=== PATIENT | female | born 1960 | race Caucasian/White ===

== ENCOUNTER 2017-09-15 20:35 | Emergency (ER) | payer MEDICAID, MEDICARE, OTHER ==
[~2017-09-15] VITALS: Ht 182.9 cm; Wt 83.9 kg
[~2017-09-15 20:35] MED LIST: BACITRACIN15 GM TOPIC; BACTRIM DS TAB1 EAC1 ORAL; BACTRIM-DS1 EA ORAL; BUPROPION HCL100 MG ORAL; CEPHALEXIN500 MG ORAL; CLINDAMYCIN HC300 MG ORAL; HYDROCODON-ACE1 EAC4 ORAL; IBUPROFEN600 MG ORAL; KEFLEX500 MG ORAL; KLONOPIN1 MG ORAL; LEVOFLOXAC250 MG/10 PO; LIDOCAINE VISC100 ML MT; LOMOTIL TABLET1 EACH ORAL; METAXALONE800 MG PO; NORCO 5-325 TA1 EACH ORAL; PANTOPRAZOLE SO40 MG ORAL; PERPHENAZINE2 MG PO; PROCHLORPERAZINE5 MG ORAL; PROPRANOLOL HCL10 MG ORAL; REGLAN10 MG ORAL; RISPERDAL0.5 MG ORAL; SERTRALINE HCL100 MG PO; TRAMADOL HCL50 MG ORAL; VISTARIL50 MG ORAL; XANAX0.25 MG ORAL
[2017-09-15] MEDS ORDERED: BUSPIRONE HCL5 M1 ORAL (20:47)
[2017-09-15 20:59] VITALS: BP 126/80
--- NOTE | 2017-09-15 21:12 | Emergency Room Report ---
History of Present Illness General Chief Complaint: Multiple Trauma/Fall Source: Patient Present Illness HPI 57-year-old female accidental slip and fall outside of her house, with abrasion to lateral aspect of the left eyebrow, abrasion to inner left wrist, abrasion to middle part of left back and left proximal leg. Not in AC or aspirin. Denies LOC, vomiting, blurry vision, change in vision Unknown last tetanus Able to ambulate Allergies: Coded Allergies: No Known Allergies (Unverified , 06/27/13) Patient History Past Medical History: none Past Surgical History: none Pertinent Family History: none Social History: Denies: smoking, alcohol use, drug use Last Menstrual Period: n/a Now: No Immunizations: UTD Reviewed Nursing Documentation: PMH: Agreed, PSxH: Agreed Nursing Documentation-PMH Hx Cardiac Problems: No Hx Hypertension: No Hx Pacemaker: No Hx Asthma: No Hx COPD: No Hx Diabetes: No Hx Cancer: No Hx Gastrointestinal Problems: Yes - Fundus duplication x 2 Hx Dialysis: No History Of Psychiatric Problem: Yes Hx Neurological Problems: Yes - medically induced coma in , neuropathy , vertigo Hx Cerebrovascular Accident: No Hx Seizures: Yes Review of Systems All Other Systems: negative except mentioned in HPI Physical Exam Vital Signs Date Time Temp Pulse Resp B/P (MAP) Pulse Ox O2 Delivery O2 Flow Rate FiO2 09/15/17 20:38 98.1 104 16 126/80 96 Room Air Sp02 EP Interpretation: reviewed, normal General Appearance: normal inspection, well appearing, no apparent distress, alert, GCS 15, non-toxic, other - Well appearing, conversant Head: normocephalic, other - Abrasion to lateral aspect left eyebrow Eyes: bilateral eye PERRL, bilateral eye EOMI ENT: normal ENT inspection, hearing grossly normal, normal pharynx, no angioedema, normal voice, TMs + canals normal, uvula midline, moist mucus membranes Neck: normal inspection, full range of motion, supple, thyroid normal, no meningismus, no bony tend Respiratory: normal inspection, lungs clear, normal breath sounds, no rhonchi, no respiratory distress, no retraction, no accessory muscle use, no wheezing, speaking full sentences Cardiovascular #1: regular rate, rhythm, no edema, no JVD, normal capillary refill Gastrointestinal: normal inspection, normal bowel sounds, non tender, soft, no mass, no peritonitis, non-distended, no guarding, no hernia, no pulsatile mass Genitourinary: no CVA tenderness Musculoskeletal: normal inspection, back normal, normal range of motion, no calf tenderness, pelvis stable, Soahil's Sign negative Neurologic: normal inspection, alert, oriented x3, responsive, 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, motor strength/tone normal, cerebellar normal, normal gait, speech normal Psychiatric: normal inspection, judgement/insight normal, mood/affect normal, no suicidal/homicidal ideation, no delusions Skin: other - Multiple very small abrasions to right foot, left elbow, abrasions Lymphatic: normal inspection, no adenopathy Medical Decision Making Diagnostic Impression: Primary Impression: Multiple injuries due to trauma Additional Impression: Fall Qualified Codes: W19.XXXA - Unspecified fall, initial encounter ER Course 57YOF with multiple abrasions, from minor trauma after accidental trip and fall at home VSS, afebrile Mild head trauma, no LOC Wounds cleaned, bandaged Analgesia given Tetanus updated All xrays reviewed by ER doctor only - radiology unavailable for definitive read at night Patient reassured ER course: Patient has remained stable during ED stay. Disposition: Patient is to be discharged to home. Patient is instructed to follow up with their primary care doctor within 5 days. Strict return precautions discussed with patient such as fever, chills, worsening/severe pain, nausea, vomiting, which may indicate severe illness. Patient verbalizes understanding and agrees with plan. Please note that this Emergency Department Report was dictated using [email or web address] bariatric technology software, occasionally this can lead to erroneous entry secondary to interpretation by the dictation equipment Other X-Ray Diagnostic Results Other X-Ray Diagnostic Results #1: X-Ray ordered: Chest and ribs # of Views/Limited Vs Complete: Complete Indication: Pain EP Interpretation: Yes Interpretation: no dislocation, no soft tissue swelling, no fractures, nonspecific bowel gas Impression: No acute disease Electronically Signed by: Dr Virgil Hilton MD Other X-Ray Diagnostic Results #2: X-Ray ordered: left femur # of Views/Limited Vs Complete: 3 View Indication: Pain EP Interpretation: Yes Interpretation: no dislocation, no soft tissue swelling, no fractures Impression: No acute disease Electronically Signed by: Dr Virgil Hilton MD Other X-Ray Diagnostic Results #3: X-Ray ordered: AP pelvis # of Views/Limited Vs Complete: 1 View Indication: Pain EP Interpretation: Yes Interpretation: no dislocation, no soft tissue swelling, no fractures Impression: No acute disease Electronically Signed by: Dr Virgil Hilton MD Last Vital Signs Date Time Temp Pulse Resp B/P (MAP) Pulse Ox O2 Delivery O2 Flow Rate FiO2 09/15/17 20:59 98.1 104 16 126/80 96 Room Air Status: improved Disposition: HOME, SELF-CARE VIRGIL HILTON M.D. Sep 15, 2017 21:12
[2017-09-15 22:00] VITALS: BP 124/83
[2017-09-15] MEDS ORDERED: TYLENOL325 MG ORAL (22:06)
[2017-09-15] MEDS ORDERED: BACITRACIN-POL1 EACH TOPIC (22:06)
[2017-09-15 22:17] VITALS: BP 124/83
--- NOTE | 2017-09-16 09:52 | Diagnostic Imaging Report ---
Indication: Pain Technique: XRAY Ribs w/PA CXR Uni L Comparison: None Findings: There is a acute fracture of the lateral left 10th rib. No significantly displacement. No pneumothorax. Imaged left lung clear. Impression: Acute, nondisplaced fracture of the lateral left 10th rib. No pneumothorax. This is discrepant from the preliminary interpretation of the treating ER physician. Findings of the final report discussed with Dr. Carcamo of the emergency department 09/16/2017, 9:45 AM.
--- NOTE | 2017-09-16 09:54 | Diagnostic Imaging Report ---
Indication: Pain Technique: XRAY Femur 2v L Comparison: None Findings: There is no acute fracture or dislocation. Imaged hip and knee joints grossly preserved. No focal soft tissue abnormality is seen. No radiopaque foreign body identified. Impression: No acute fracture or dislocation.
--- NOTE | 2017-09-16 09:56 | Diagnostic Imaging Report ---
Indication: Pain Technique: XRAY Pelvis 1v Comparison: None Findings: No acute fracture or dislocation. Symphysis pubis is maintained. Bowel gas pattern is unremarkable. No radiopaque foreign body identified. Impression: No acute fracture or dislocation.
== END 2017-09-15 22:17 | disposition home or self-care (01) ==
LOC: EMR 22:15
DX: S50.312A Abrasion of left elbow, initial encounter (principal); S00.212A Abrasion of left eyelid and periocular area, initial encounter; S22.32XA Fracture of one rib, left side, initial encounter for closed fracture; W01.0XXA Fall on same level from slipping, tripping and stumbling without subsequent striking against object, initial encounter; Y92.008 Other place in unspecified non-institutional (private) residence as the place of occurrence of the external cause
CPT/HCPCS: 72170; 99284

== ENCOUNTER 2018-09-18 19:54 | Emergency (ER) | payer MEDICARE, OTHER ==
[~2018-09-18] VITALS: Ht 182.9 cm; Wt 86.2 kg
[~2018-09-18 19:54] MED LIST changes: +BACITRACIN-POL1 EACH TOPIC; +BUSPIRONE HCL5 M1 ORAL; +TYLENOL325 MG ORAL
[2018-09-18 20:05] VITALS: BP 109/72
--- NOTE | 2018-09-18 20:05 | NUR ---
ED Nurse Note: pt came in due to medication refill for neuropathy, pt complaining or 5./10 pain on right rib
[2018-09-18] MEDS ORDERED: VOLTAREN100 G1 TP (20:23)
[2018-09-18 20:26] VITALS: BP 109/72
--- NOTE | 2018-09-18 20:26 | NUR ---
ED Nurse Note: Patient is being discharged cleared by ER PA. discharge paper/instruction given to the patient, patient verbalized understanding. patient a/o x4, ambulated out of Ed with steady gait, with all belongings. ID band removed.
--- NOTE | 2018-09-18 21:02 | Emergency Room Report ---
History of Present Illness General Chief Complaint: Medication Refill Source: Patient Present Illness HPI Patient is a 58-year-old female presented after running out of her pain medications. Patient reports having prior hist ory of neuropathy. Patient is requesting a refill of her [place]. Patient was noted to have Patient denies any new complaints. Per report patient reports being a smoker. She denies any increased discomfort at this time. Allergies: Coded Allergies: No Known Allergies (Unverified , 06/27/13) Patient History Now: No Reviewed Nursing Documentation: PMH: Agreed; PSxH: Agreed Nursing Documentation-PMH Hx Cardiac Problems: No Hx Hypertension: No Hx Pacemaker: No Hx Asthma: No Hx COPD: No Hx Diabetes: No Hx Cancer: No Hx Gastrointestinal Problems: Yes - Fundus duplication x 2 Hx Dialysis: No Hx Neurological Problems: Yes - medically induced coma in , neuropathy , vertigo Hx Cerebrovascular Accident: No Hx Seizures: Yes Review of Systems All Other Systems: negative except mentioned in HPI Physical Exam Vital Signs Date Time Temp Pulse Resp B/P (MAP) Pulse Ox O2 Delivery O2 Flow Rate FiO2 09/18/18 20:02 97.5 93 18 109/72 98 09/18/18 20:05 Room Air General Appearance: well appearing, no apparent distress, alert, GCS 15 Head: normocephalic, atraumatic ENT: hearing grossly normal, normal voice Neck: full range of motion, supple Respiratory: no respiratory distress, speaking full sentences Gastrointestinal: normal bowel sounds, non tender, soft, no mass, no organomegaly Musculoskeletal: no calf tenderness Neurologic: normal inspection, alert, oriented x3, responsive, 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 Patient was advised that she would need to follow-up with her primary care physician for medication refills. Patient was given a prescription for topical anti-inflammatory medications. Last Vital Signs Date Time Temp Pulse Resp B/P (MAP) Pulse Ox O2 Delivery O2 Flow Rate FiO2 09/18/18 20:26 97.5 68 18 109/72 98 Room Air Status: improved Disposition: HOME, SELF-CARE Condition: Stable Scripts Diclofenac Sodium (VOLTAREN) 100 Gm Gel..gram. 5 GM TP DAILY for pain, #100 GM Prov: Willi Mitchell MD 09/18/18 Patient Instructions: Chronic Pain Additional Instructions: Follow up with your primary doctor or pain management for pain medications Willi Mitchell MD Sep 18, 2018 21:02
== END 2018-09-18 20:35 | disposition home or self-care (01) ==
LOC: EMR 20:35
DX: G89.29 Other chronic pain (principal); F17.200 Nicotine dependence, unspecified, uncomplicated; R56.9 Unspecified convulsions
CPT/HCPCS: 99282

== ENCOUNTER 2019-03-08 22:45 | Emergency (ER) | payer OTHER ==
[~2019-03-08] VITALS: Ht 182.9 cm; Wt 86.2 kg
[~2019-03-08 22:45] MED LIST changes: +VOLTAREN100 G1 TP
[2019-03-08 23:10] VITALS: BP 130/85
--- NOTE | 2019-03-08 23:15 | NUR ---
ED Nurse Note: Patient walked in to ER c/o rash on right chest, stated that having difficulty to breath, appears calm, satting at 99% on room air. AAO x4, VSS at this time.
[2019-03-08] MEDS ORDERED: NORCO 5-325 TA1 EACH ORAL (23:55)
[2019-03-08] MEDS ORDERED: ACYCLOVIR800 MG ORAL (23:55)
[2019-03-09 00:44] VITALS: BP 130/85
--- NOTE | 2019-03-09 00:45 | NUR ---
ED Nurse Note: Pt cleared by health care Provider for discharge. DC instructions/prescription was given and explained to pt and verbalized understanding of teachings. All medical deviecs such as ID band removed. Pt is AAO x4, ambulatory and left with all personal belongings.
--- NOTE | 2019-03-10 22:05 | Emergency Room Report ---
History of Present Illness General Chief Complaint: Skin Rash/Abscess Source: Patient Present Illness Allergies: Coded Allergies: No Known Allergies (Unverified , 06/27/13) Patient History Last Menstrual Period: NA Now: No : 4 Para: 2 Nursing Documentation-PMH Hx Cardiac Problems: No Hx Hypertension: No Hx Pacemaker: No Hx Asthma: No Hx COPD: No Hx Diabetes: No Hx Cancer: No Hx Gastrointestinal Problems: Yes - stomach Sx Hx Dialysis: No History Of Psychiatric Problem: Yes - bipolar Hx Neurological Problems: Yes - neuropathy Hx Cerebrovascular Accident: No Hx Seizures: Yes Physical Exam Vital Signs Date Time Temp Pulse Resp B/P (MAP) Pulse Ox O2 Delivery O2 Flow Rate FiO2 03/08/19 22:51 97.5 97 16 130/85 (100) 99 Room Air Medical Decision Making Diagnostic Impression: Primary Impression: Shingles Last Vital Signs Date Time Temp Pulse Resp B/P (MAP) Pulse Ox O2 Delivery O2 Flow Rate FiO2 03/09/19 00:44 97.5 16 130/85 99 Room Air 03/08/19 22:51 97 Disposition: HOME, SELF-CARE Condition: Stable Scripts Acyclovir* (ZOVIRAX*) 800 Mg Tablet 800 MG ORAL FIVE TIMES A DAY, #35 TAB Prov: Willi Mitchell MD 03/08/19 Hydrocodone Bit/Acetaminophen 5-325* (NORCO 5-325*) 1 Each Tablet 1 TAB ORAL Q6H PRN for For Pain, #30 TAB 0 Refills Prov: Willi Mitchell MD 03/08/19 Referrals: NON PHYSICIAN (PCP) Patient Instructions: Sofie [id number] Willi Mitchell MD Mar 10, 2019 22:05
== END 2019-03-09 00:46 | disposition home or self-care (01) ==
LOC: EMR 23:16
DX: B02.9 Zoster without complications (principal); G62.9 Polyneuropathy, unspecified; F31.9 Bipolar disorder, unspecified; G40.909 Epilepsy, unspecified, not intractable, without status epilepticus
CPT/HCPCS: 99282

== ENCOUNTER 2019-07-28 14:02 | Emergency (ER) | payer OTHER ==
[~2019-07-28] VITALS: Ht 180.3 cm; Wt 81.6 kg
[~2019-07-28 14:02] MED LIST changes: +ACYCLOVIR800 MG ORAL
--- NOTE | 2019-07-28 14:10 | NUR ---
ED Nurse Note:pt. came from home with respiratory distress and anxiety, placed on law tutor, pt. is A/Ox4 ambulatory, VSS, no c/o pain at this time, blood sent to labs, given breathing treatment and iv meds
--- NOTE | 2019-07-28 14:14 | Emergency Room Report ---
History of Present Illness General Chief Complaint: Cough Source: Patient Present Illness HPI Disclaimer: Please note that this report is being documented using [employer] technology. This can lead to erroneous entry secondary to incorrect interpretation by the dictating instrument. HPI: 51-year-old female presents for evaluation of shortness of breath and cough. Patient states she has had a nonproductive cough for over 1 month but acutely worsened over the past 36 hours. She notes an almost uncontrollable cough and worsening shortness of breath. Denies chest pain but notes bilateral lower extremity swelling. No history of heart disease. No recent fevers, chills. Has a history of hiatal hernia and peptic ulcer disease status post fundoplasty many years ago. Also reports increasing anxiety over the past month since her Klonopin was cut from 3 times daily to once daily. PMH: Hypertension, hyperlipidemia, former alcohol and drug abuse, anxiety disorder, peptic ulcer disease PSH: Fundoplasty many years ago Allergies: None reported Social Hx: Former alcohol abuse Allergies: Coded Allergies: No Known Allergies (Unverified , 06/27/13) Nursing Documentation-PMH Hx Cardiac Problems: No Hx Hypertension: No Hx Pacemaker: No Hx Asthma: No Hx COPD: No Hx Diabetes: No Hx Cancer: No Hx Gastrointestinal Problems: Yes - stomach Sx Hx Dialysis: No Hx Neurological Problems: Yes - neuropathy Hx Cerebrovascular Accident: No Hx Seizures: Yes Review of Systems All Other Systems: negative except mentioned in HPI Physical Exam General: Awake and alert, appears uncomfortable HEENT: NC/AT. EOMI. Cardiovascular: Tachycardic. S1 and S2 normal. No murmur appreciated Resp: Increased work of breathing and near constant cough during my exam. Nonproductive. No wheezes appreciated. Could not appreciate crackles. Abdomen: Abdomen is soft, nondistended. Nontender Skin: Intact. No abrasions, laceration or rash over the exposed skin MSK: Normal tone and bulk. Moving all extremities. No obvious deformity. Neuro: Awake and alert. Mentating appropriately. Medical Decision Making Diagnostic Impression: Primary Impression: Hypokalemia Additional Impressions: Cough Upper respiratory infection ER Course 59-year-old female presents for evaluation of cough and shortness of breath. Cough is been present for over 1 month but symptoms acutely worsened over the past 36 hours. Differential includes was not limited to pneumonia, bronchitis, URI, GERD, pneumothorax, ACS, medication side effect. Will obtain x-ray, EKG, cardiac labs to rule out cardiac causes of shortness of breath though appears to be more consistent with an upper respiratory infection or possible complication of her severe GERD. Will give a breathing treatment and monitor for improvement. She arrives tachycardic and tachypneic but no hypoxia, stable blood pressure. Laboratory Tests Test 07/28/19 14:20 White Blood Count 4.8 K/UL (4.8-10.8) Red Blood Count 4.58 M/UL (4.20-5.40) Hemoglobin 13.0 G/DL (12.0-16.0) Hematocrit 41.1 % (37.0-47.0) Mean Corpuscular Volume 90 FL (80-99) Mean Corpuscular Hemoglobin 28.4 PG (27.0-31.0) Mean Corpuscular Hemoglobin Concent 31.6 G/DL (32.0-36.0) L Red Cell Distribution Width 14.9 % (11.6-14.8) H Platelet Count 286 K/UL (150-450) Mean Platelet Volume 5.1 FL (6.5-10.1) L Neutrophils (%) (Auto) 70.8 % (45.0-75.0) Lymphocytes (%) (Auto) 18.9 % (20.0-45.0) L Monocytes (%) (Auto) 7.4 % (1.0-10.0) Eosinophils (%) (Auto) 2.4 % (0.0-3.0) Basophils (%) (Auto) 0.5 % (0.0-2.0) Sodium Level 143 MMOL/L (136-145) Potassium Level 3.1 MMOL/L (3.5-5.1) L Chloride Level 107 MMOL/L (98-107) Carbon Dioxide Level 21 MMOL/L (21-32) Anion Gap 15 mmol/L (5-15) Blood Urea Nitrogen 8 mg/dL (7-18) Creatinine 0.8 MG/DL (0.55-1.30) Estimate Glomerular Filtration Rate > 60 mL/min (>60) Glucose Level 93 MG/DL (74-106) Calcium Level 8.8 MG/DL (8.5-10.1) Total Bilirubin 0.3 MG/DL (0.2-1.0) Aspartate Amino Transferase (AST) 14 U/L (15-37) L Alanine Aminotransferase (ALT) 14 U/L (12-78) Alkaline Phosphatase 116 U/L (46-116) Troponin I 0.010 ng/mL (0.000-0.056) Pro-B-Type Natriuretic Peptide 176 pg/mL (0-125) H Total Protein 6.7 G/DL (6.4-8.2) Albumin 3.4 G/DL (3.4-5.0) Globulin 3.3 g/dL Albumin/Globulin Ratio 1.0 (1.0-2.7) Microbiology Date/Time Source Procedure Growth Status 07/28/19 15:00 Nasal Nares - Final Complete 07/28/19 15:00 Nasal Nares - Final Complete EKG Diagnostic Results EKG Time: 14:22 Rate: tachycardiac Rhythm: NSR ST Segments: no acute changes Other Impression Sinus tachycardia, normal axis, normal intervals, no ST segment changes. Rhythm Strip Diag. Results Rhythm Strip Time: 14:22 EP Interpretation: yes Rate: 100s Rhythm: NSR, no PVC's, no ectopy Chest X-Ray Diagnostic Results Chest X-Ray Diagnostic Results : Chest X-Ray Ordered: Yes # of Views/Limited/Complete: 1 View Indication: Shortness of Breath EP Interpretation: Yes Interpretation: no consolidation, no effusion, no pneumothorax, no acute cardiopulmonary disease Impression: No acute disease Electronically Signed by: Electronically signed by Dr. Leroy Rojas Reevaluation Time: 16:38 Status: improved Reevaluation Impression Labs returned unremarkable. Flu is negative. No white count, no shift, normal renal function. Potassium slightly low at 3.1 she received oral repletion in the emergency department and will be discharged with an additional few days here troponin negative. EKG unremarkable and there is no evidence of infiltrate on chest x-ray. Patient was given nebulized lidocaine and Robitussin with codeine in the emergency department. No longer coughing. Vital signs are normalized. She will be discharged home with outpatient follow- up. Discussed reasons to return to the emergency department. She understands and agrees with the treatment plan. Disposition: HOME, SELF-CARE Condition: Improved Scripts Guaifenesin/Codeine Phosphate (Codeine-Guaifen 10-100 mg/5 ml) 120 Ml Liquid 5 ML PO Q6HR for 5 Days, #100 ML Prov: Leroy Rojas MD 07/28/19 Potassium Chloride* (K-DUR*) 20 Meq Tab.er.prt 40 MEQ ORAL DAILY, #6 TAB 0 Refills Prov: Leroy Rojas MD 07/28/19 Leroy Rojas MD Jul 28, 2019 14:13
[2019-07-28] MEDS ORDERED: Albuterol/Ipratropium 3ml neb HHN ONE (14:15)
[2019-07-28] MEDS ORDERED: LORazepam Inj 2mg/ml 1ml IV ONE (14:15)
[2019-07-28 14:31] VITALS: BP 131/107
[2019-07-28 14:34] LABS: BASOPHILS % (AUTO) 0.5 % (0.0-2.0); EOSINOPHILS % (AUTO) 2.4 % (0.0-3.0); HEMATOCRIT 41.1 % (37.0-47.0); LYMPHOCYTES % (AUTO) 18.9 % (20.0-45.0); MEAN CORPUSCULAR VOLUME 90 FL (80-99); MONOCYTES % (AUTO) 7.4 % (1.0-10.0); NEUTROPHILS % (AUTO) 70.8 % (45.0-75.0); PLATELET COUNT 286 K/UL (150-450); RED BLOOD COUNT 4.58 M/UL (4.20-5.40); RED CELL DISTRIBUTION WIDTH 14.9 % (11.6-14.8); WHITE BLOOD COUNT 4.8 K/UL (4.8-10.8)
[2019-07-28] MEDS ORDERED: guaiFENesin w/Codeine 5ml Liq ud ORAL ONE (15:00)
[2019-07-28 15:10] LABS: ANION GAP 15 mmol/L (5-15); BLOOD UREA NITROGEN 8 mg/dL (7-18); CALCIUM 8.8 MG/DL (8.5-10.1); CARBON DIOXIDE 21 MMOL/L (21-32); CHLORIDE 107 MMOL/L (98-107); CREATININE 0.8 MG/DL (0.55-1.30); POTASSIUM 3.1 MMOL/L (3.5-5.1); SODIUM 143 MMOL/L (136-145)
--- NOTE | 2019-07-28 15:11 | Diagnostic Imaging Report ---
Indication: Shortness of breath Technique: One view of the chest Comparison: 11/13/2014 Findings: Lungs and pleural spaces are clear. Heart size is normal. Inspiration is suboptimal. No other significant interim change Impression: No acute process
[2019-07-28 15:20] LABS: ALANINE AMINOTRANSFERASE 14 U/L (12-78); ALBUMIN 3.4 G/DL (3.4-5.0); ALKALINE PHOSPHATASE 116 U/L (46-116); ASPARTATE AMINO TRANSFERASE 14 U/L (15-37); BILIRUBIN,TOTAL 0.3 MG/DL (0.2-1.0)
--- NOTE | 2019-07-28 16:05 | NUR ---
ED Nurse Note: Patient feeling only slight relief from medications. She states she has had the cough chronically and it is "from a tear in my esophagous". Patient in no acute distress.
[2019-07-28 16:10] VITALS: BP 128/98
[2019-07-28] MEDS ORDERED: Lidocaine 1% MPF 10mg/ml 5ml HHN ONE (16:30)
[2019-07-28] MEDS ORDERED: CODEINE-GUAIFE120 ML PO (16:41)
[2019-07-28] MEDS ORDERED: POTASSIUM CHLO20 ME1 ORAL (16:41)
[2019-07-28 18:05] VITALS: BP 130/99
[2019-07-28 18:17] VITALS: BP 130/99
[2019-07-29 07:06] VITALS: BP 126/98
--- NOTE | 2019-08-01 15:42 | Cardiology Report ---
APPROVED REPORT EKG Measurement Heart [id number] [id number] Sinus tachycardia Nonspecific T wave abnormality Abnormal ECG
== END 2019-07-28 18:17 | disposition home or self-care (01) ==
LOC: EMR 14:15
DX: J06.9 Acute upper respiratory infection, unspecified (principal); R05 Cough; E87.6 Hypokalemia; I10 Essential (primary) hypertension; E78.5 Hyperlipidemia, unspecified; F41.9 Anxiety disorder, unspecified; Z87.11 Personal history of peptic ulcer disease; G40.909 Epilepsy, unspecified, not intractable, without status epilepticus; G62.9 Polyneuropathy, unspecified; R00.0 Tachycardia, unspecified
CPT/HCPCS: 36415; 71045; 80053; 83880; 84484; 85025; 86710; 93005; 94640; 94664; 96374; 99284; J7620; J8499